=== PATIENT | male | born 1990 | race Caucasian/White ===

== ENCOUNTER 2016-11-10 09:23 | Emergency (ER) | payer SELFPAY ==
[2016-11-10 10:24] LABS: % IMMATURE GRANULYOCYTES 0.3 % (0.0-1.1); ABSOLUTE IMMATURE GRANULOCYTES 0.03 10^3/uL (0.00-0.10); ADD DIFF? NO; ADD MORPH? NO; ADD SCAN? NO; ATYPICAL LYMPHOCYTE FLAG 0 (0-99); FRAGMENT RBC FLAG 0 (0-99); HEMATOCRIT 48.3 % (40.0-51.0); HEMOGLOBIN 16.4 g/dL (13.7-17.5); LEFT SHIFT FLG 0 (0-99); LIPEMIA HEMOLYSIS FLAG 90 (0-99); MEAN CELL VOLUME 91.3 fL (81.5-99.8); MEAN PLATELET VOLUME 10.1 fL (8.7-11.7); PLATELET CLUMPS FLAG 0 (0-99); PLATELET COUNT 190 10^3/uL (150-400); RED BLOOD CELL COUNT 5.29 10^6/uL (4.40-6.38); RED CELL DISTRIBUTION WIDTH 12.3 % (11.5-15.2)
--- NOTE | 2016-11-10 10:28 | EDPHY ---
H & P Stated Complaint: M1 by PD, psychosis, "not eating or sleeping" Source: Patient Exam Limitations: No limitations - Personal History Tetanus Vaccine Date: 2007 - Medical/Surgical History Hx Asthma: No Hx Chronic Respiratory Disease: No Hx Diabetes: No Hx Cardiac Disease: No Hx Renal Disease: No Hx Cirrhosis: No Hx Alcoholism: No Hx HIV/AIDS: No Hx Splenectomy or Spleen Trauma: No Other PMH: PMH: adhd, bipolar; Possible Hep C. PSH: R hand fx w/ sx; R wrist tendon repair;. Current: Cellulitis L. foot - Social History Smoking Status: Current some day smoker HPI/ROS: CHIEF COMPLAINT: M1, psychosis HISTORY OF PRESENT ILLNESS: Patient arrives from [place] [facility] on an M1 hold. He was reportedly walking around [place] and police were notified. He feels this started around Wednesday. He feels that he has been awake since then. He has difficulty recalling the exact details of the past 2 days. He admits to feeling awkward. He says that he is just felt awake and that he can see and feel and hear everything. He denies any system complaints. He denies suicidal ideation or homicidal ideation. He denies taking any medication although he has been prescribed lithium and others in the past. He says that he has an apartment here [place] but he is not sure when he was last there. He does not recall the name of his physicians. PSYCHIATRIC DIAGNOSES: Bipolar disorder PRIOR PSYCHIATRIC EVALUATIONS: He does not recall M1/DETAINER: [place] [employer] M1 REVIEW OF SYSTEMS: Ten systems reviewed and are negative unless otherwise noted in the HPI EXAMINATION General Appearance: Alert, no distress. Unkempt Head: normocephalic, atraumatic Eyes: Pupils equal and round, no conjunctival pallor or injection. EOMs intact. ENT, Mouth: Mucous membranes moist Neck: Normal inspection. Will not cooperate with range of motion testing. Respiratory: Patient declined auscultation. There are no retractions or signs of distress. Cardiovascular: Patient declined auscultation. Vital signs reveal normal rate Gastrointestinal: Patient declined palpation. No distention Neurological: Alert to person place. Intermittently disoriented to time. Aware of the scenario but is amnestic to the events of the past 3 days. Skin: Warm and dry, unclean. Multiple tattoos. Multiple piercings. Extremities: Declines examination. Moving all 4 extremities spontaneously. Psychiatric: Flat affect. Denies suicidal ideation. Denies homicidal ideation. Slow response time. Difficulty focusing DIFFERENTIAL DIAGNOSES: Including but not limited to acute psychosis, bipolar disorder, manic episode, sub manic episode, subtherapeutic lithium, toxic lithium, dehydration MDM: 11:10 a.m. Acute psychosis and likely manic episode in a patient with documented bipolar disorder. His lithium is subtherapeutic. His chemistry, CBC and toxicology are unremarkable with exception of positive marijuana. He is medically cleared at this time for psychiatric evaluation 12:30 p.m. Patient remains calm. He is pacing in his room but he is not combative. Still awaiting psychiatric evaluation. 1:40 p.m. Still awaiting psychiatric evaluation. Patient is to be evaluated by [facility] 2:00 p.m. Notified that patient attempted to elope. He was returned back to his room with force. After this he began calmed down. 3:10 p.m. Patient reportedly has been evaluated by mental health professional. Awaiting their assessment at this time. He is currently sleeping and in acute distress. 3:50 p.m. Patient has been evaluated with recommendation of inpatient care. He is currently awaiting acceptance for inpatient psychiatric care. At this time, Dr. Joseph will assume care of the patient. SUPERVISION: Shared visit (Jah Figueroa) Constitutional: Initial Vital Signs Temperature (C) 36.6 C 11/10/16 09:26 Heart Rate 57 L 11/10/16 09:26 Respiratory Rate 18 11/10/16 09:26 Blood Pressure 122/73 H 11/10/16 09:26 O2 Sat (%) 98 11/10/16 09:26 O2 Delivery Mode Room Air Allergies/Adverse Reactions: aripiprazole Allergy (Verified 06/21/15 05:58) Opioids - Morphine Analogues Allergy (Verified 06/21/15 05:58) Home Medications: Medication Instructions Recorded QUEtiapine FUMARATE [Seroquel 50 50 mg PO QID PRN #0 tab 04/18/15 mg (*)] QUEtiapine FUMARATE [Seroquel 100 100 mg PO HS 02/03/16 mg (*)] Cholecalciferol Vit D3 [Vitamin D3 1,000 units PO DAILY #0 tab 02/13/16 (*)] Stephenson Carbonate ER [Lithobid 300 900 mg PO HS #90 tab 18/16 mg (*)] [place]-3 Fatty Acids [Fish Oil 1000 1,000 mg PO DAILY #0 cap 18/16 mg (*)] QUEtiapine FUMARATE [Seroquel 100 100 mg PO HS #30 tab 18/16 mg (*)] Medical Decision Making ED Course/Re-evaluation: 2002: Patient become acutely agitated again throwing his food across the ER room. He did run once. Nursing asking for IM Zyprexa again. I have ordered 10 mg IM. (Zheng Joseph) Other Provider: The patient is turned over to Dr. Joseph at 3pm pending psychiatric placement. (Clinton Gutierrez) - Data Points Laboratory Results: Laboratory Results 11/10/16 10:11 11/10/16 10:11 11/10/16 11/10/16 11/10/16 10:11 10:11 10:00 WBC 9.47 10^3/uL 10^3/uL (3.80-9.50) RBC 5.29 10^6/uL 10^6/uL (4.40-6.38) Hgb 16.4 g/dL g/dL (13.7-17.5) Hct 48.3 % % (40.0-51.0) MCV 91.3 fL fL (81.5-99.8) MCH 31.0 pg pg (27.9-34.1) MCHC 34.0 g/dL g/dL (32.4-36.7) RDW 12.3 % % (11.5-15.2) Plt Count 190 10^3/uL 10^3/uL (150-400) MPV 10.1 fL fL (8.7-11.7) Neut % (Auto) 75.2 % H % (39.3-74.2) Lymph % (Auto) 13.5 % L % (15.0-45.0) [place] % (Auto) 10.6 % % (4.5-13.0) Eos % (Auto) 0.0 % L % (0.6-7.6) Baso % (Auto) 0.4 % % (0.3-1.7) Nucleat RBC Rel Count 0.0 % % (0.0-0.2) Absolute Neuts (auto) 7.12 10^3/uL H 10^3/uL (1.70-6.50) Absolute Lymphs (auto) 1.28 10^3/uL 10^3/uL (1.00-3.00) Absolute Monos (auto) 1.00 10^3/uL H 10^3/uL (0.30-0.80) Absolute Eos (auto) 0.00 10^3/uL L 10^3/uL (0.03-0.40) Absolute Basos (auto) 0.04 10^3/uL 10^3/uL (0.02-0.10) Absolute Nucleated RBC 0.00 10^3/uL 10^3/uL (0-0.01) Immature Gran % 0.3 % % (0.0-1.1) Immature Gran # 0.03 10^3/uL 10^3/uL (0.00-0.10) Sodium 140 mEq/L mEq/L (134-144) Potassium 4.1 mEq/L mEq/L (3.5-5.2) Chloride 100 mEq/L mEq/L (97-110) Carbon Dioxide 26 mEq/l mEq/l (22-31) Anion Gap 14 mEq/L mEq/L (8-16) BUN 16 mg/dL mg/dL (7-23) Creatinine 0.9 mg/dL mg/dL (0.7-1.3) Estimated GFR > 60 Glucose 94 mg/dL mg/dL (70-100) Calcium 9.9 mg/dL mg/dL (8.5-10.4) Salicylates < 1.0 mg/dL L mg/dL (2.0-20.0) Urine Opiates Screen NEGATIVE (NEGATIVE) Acetaminophen < 10 mcg/mL L mcg/mL (10.0-30.0) Urine Barbiturates NEGATIVE (NEGATIVE) Ur Phencyclidine Scrn NEGATIVE (NEGATIVE) Ur Amphetamine Screen NEGATIVE (NEGATIVE) U Benzodiazepines Scrn NEGATIVE (NEGATIVE) Stephenson 0.2 mEq/L L mEq/L (0.6-1.2) Urine Cocaine Screen NEGATIVE (NEGATIVE) U Marijuana (THC) Screen NON-NEGATIVE H (NEGATIVE) Ethyl Alcohol < 10 mg/dL mg/dL (0-10) Medications Given: Discontinued Medications Olanzapine (Zyprexa Im Injection) 5 mg IM EDNOW ONE Stop: 11/10/16 11:25 Last Admin: 11/10/16 11:32 Dose: 5 mg Departure - Departure Clinical Impression: Acute psychosis, Manic episode, Stephenson use Condition: Good Referrals: NONE *PRIMARY CARE P,. [Primary Care Provider] - As per Instructions
[2016-11-10 10:48] LABS: ANION GAP 14 mEq/L (8-16); CALCIUM 9.9 mg/dL (8.5-10.4); CARBON DIOXIDE 26 mEq/l (22-31); CHLORIDE 100 mEq/L (97-110); CREATININE 0.9 mg/dL (0.7-1.3); ETHANOL SERUM < 10 mg/dL (0-10); GLOMERULAR FILTRATION RATE > 60; GLUCOSE 94 mg/dL (70-100); LITHIUM 0.2 mEq/L (0.6-1.2); POTASSIUM 4.1 mEq/L (3.5-5.2); SALICYLATE < 1.0 mg/dL (2.0-20.0); SODIUM 140 mEq/L (134-144)
[2016-11-10] MEDS ORDERED: OLANZapine 10 MG/2 ML VIAL IM ONE ×3 (11:20→20:03)
[2016-11-10 22:11] VITALS: RESP 20
[2016-11-11] MEDS ORDERED: LORazepam 1 MG TAB ONE (00:41)
[2016-11-11 00:59] VITALS: BP 126/91; PULSE 94; TEMP 98.2; O2SAT 99
== END 2016-11-11 01:52 | disposition short-term general hospital (02) ==
DX: F30.2 Manic episode, severe with psychotic symptoms (principal); Z79.899 Other long term (current) drug therapy
CPT/HCPCS: 80305; G0480

== ENCOUNTER 2017-11-12 16:37 | Emergency (ER) | payer OTHER ==
[2017-11-12 16:49] VITALS: BP 101/64
== END 2017-11-12 17:45 | disposition left against medical advice (07) ==
DX: Z53.21 Procedure and treatment not carried out due to patient leaving prior to being seen by health care provider (principal)